=== PATIENT | female | born 1965 | race American Indian/Alaskan Native ===

== ENCOUNTER 2019-10-12 15:41 | Emergency (ER) | payer SELFPAY ==
--- NOTE | 2019-10-12 15:56 | Emergency Department Report ---
ED Female HPI - General Stated complaint: VAGINAL BLEED Time Seen by Provider: 10/12/19 15:44 Source: patient Mode of arrival: Stretcher Limitations: No Limitations - History of Present Illness Initial comments: Mrs. Ugarte is a 54 yo female with hx of bipolar disorder, dysfunctional uterine bleeding, hypertension, dyslipidemia, diabetes mellitus, PCOS who presents from [facility] for evaluation of vaginal bleeding. Patient has had intermittent vaginal bleeding for quite some time. Her vaginal bleeding worsened at the end of September. She was evaluated at [facility]. Due to delusional thought pattern hyperverbal combative behavior, she was transferred to [facility]. 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 She feels as if her agitation combative behavior was triggered by the severe vaginal bleeding. She also admits that she has been under a lot of stress recently. Currently denies SI HI hallucinations. Currently she has dizziness and shortness of breath. MD Complaint: vaginal bleeding -: Gradual, week(s) (Worse over the past 1.5 weeks), year(s) (Several years) Severity: moderate, severe Consistency: constant Improves with: none, menstrual period Are you Now?: No Associated Symptoms: vaginal bleeding, shortness of breath - Related Data Allergies Allergy/AdvReac Type Severity Reaction Status Date / Time clindamycin [From Cleocin] Allergy Rash Verified 10/12/19 15:58 levofloxacin [From Levaquin] Allergy Shortness Verified 10/12/19 15:58 of Breath Penicillins Allergy Rash Verified 10/12/19 15:57 Sulfa (Sulfonamide Allergy Rash Verified 10/12/19 15:58 Antibiotics) ED Review of Systems ROS: Stated complaint: VAGINAL BLEED Other details as noted in HPI Comment: All other systems reviewed and negative Constitutional: denies: fever, malaise Respiratory: shortness of breath. denies: cough Cardiovascular: denies: chest pain Genitourinary: abnormal menses ED Past Medical Hx - Past Medical History Previous Medical History?: Yes Hx Hypertension: Yes Hx Diabetes: Yes Hx Psychiatric Treatment: Yes (Bipolar affective disorder) Additional medical history: Dyslipidemia, PCOS - Surgical History Past Surgical History?: Yes Additional Surgical History: Breast lumpectomy, tonsillectomy, D&C ED Physical Exam - General General appearance: alert, in no apparent distress - Head Head exam: Present: atraumatic, normocephalic - Eye Eye exam: Present: normal appearance - ENT ENT exam: Present: mucous membranes moist - Neck Neck exam: Present: normal inspection, full ROM - Respiratory Respiratory exam: Present: normal lung sounds bilaterally. Absent: respiratory distress, wheezes, rales, rhonchi - Cardiovascular Cardiovascular Exam: Present: regular rate, normal rhythm, normal heart sounds. Absent: systolic murmur, diastolic murmur, rubs, gallop - GI/Abdominal GI/Abdominal exam: Present: soft, normal bowel sounds. Absent: distended, tenderness, guarding, rebound - Extremities Exam Extremities exam: Present: normal inspection - Neurological Exam Neurological exam: Present: alert, oriented X3 - Psychiatric Psychiatric exam: Present: normal affect, normal mood - Skin Skin exam: Present: normal color, rash, other (Erythematous rash under both breasts) ED Course Vital Signs 10/12/19 10/12/19 15:52 15:59 Temperature 97.6 F Pulse Rate 93 H Respiratory 19 20 Rate Blood Pressure 147/69 O2 Sat by Pulse 100 Oximetry ED Medical Decision Making - Lab Data Result diagrams: 10/12/19 15:53 - Radiology Data Radiology results: report reviewed Ultrasound: Mildly thickened endometrial complex maximal diameter 1.6 cm, likely uterine fibroid in the posterior wall 2.8 cm in diameter no free pelvic fluid, bilateral adnexal regions within normal limits - Medical Decision Making This is a 54-year-old female who is currently being evaluated and treated at [facility]. She has had intermittent dysfunctional bleeding uterine for several years worse over the last 10 days. No significant anemia. I spoke with associated colleague of Dr. Alcaraz. She recommended outpatient follow-up. Hormonal therapy is contraindicated in this instance. Patient is discharged home. She was discharged voluntarily from [facility] clinic. She is appropriate for discharge. Critical care attestation.: If time is entered above; I have spent that time in minutes in the direct care of this critically ill patient, excluding procedure time. ED Disposition Clinical Impression: Dysfunctional uterine bleeding, Uterine fibroid Disposition: TO HOME OR SELFCARE Is pt being admited?: No Does the pt Need Aspirin: No Condition: Stable Instructions: Dysfunctional Uterine Bleeding (ED), Uterine Fibroids (ED) Referrals: JOSSIE ALCARAZ MD [Staff Physician] - 2-3 Days
[2019-10-12 15:57] VITALS: BP 147/69
[2019-10-12 16:06] LABS: Basophils # (Auto) 0.1 K/mm3 (0.0-0.1); Basophils % (Auto) 0.5 % (0.0-1.8); Eosinophils # (Auto) 0.1 K/mm3 (0.0-0.4); Eosinophils % (Auto) 0.9 % (0.0-4.3); Hematocrit 35.2 % (30.3-42.9); Hemoglobin 11.3 gm/dl (10.1-14.3); Lymphocytes # (Auto) 2.7 K/mm3 (1.2-5.4); Lymphocytes % (Auto) 26.1 % (13.4-35.0); Mean Corpuscular HGB Conc 32 % (30-34); Mean Corpuscular Volume 84 fl (79-97); Monocytes # (Auto) 0.7 K/mm3 (0.0-0.8); Monocytes % (Auto) 6.7 % (0.0-7.3); Platelet Count 243 K/mm3 (140-440); Red Cell Distribution Width 13.9 % (13.2-15.2)
--- NOTE | 2019-10-12 17:45 | Ultrasound Report ---
EXAMINATION: Pelvic ultrasound, 10/12/2019 CLINICAL INFORMATION: Dysfunctional uterine bleeding. COMPARISON: No relevant prior studies are available for comparison. FINDINGS: The uterus is upper limits of normal in size measuring 9.9 x 4.6 x 6.5 cm. The endometrial complex is thickened to a maximum dimension of 1.6 cm. There is a single hypoechoic oval mass within the licensed pesticide applicator ior wall of the uterus measuring 2.8 x 1.3 cm. Several mildly complicated nabothian cysts are present , the largest of which measures 1.6 cm. The bilateral adnexal regions appear within normal limits. No free pelvic fluid is visualized. IMPRESSION: 1. Mildly thickened endometrial complex measuring a maximum of 1.6 cm. 2. Hypoechoic oval mass in the posterior uterine wall favored to represent a uterine fibroid. Signer Name: Mary Hatch MD Signed: 10/12/2019 5:41 PM Workstation Name: [email or web address]
--- NOTE | 2019-10-12 17:45 | Ultrasound Report ---
EXAMINATION: Pelvic ultrasound, 10/12/2019 CLINICAL INFORMATION: Dysfunctional uterine bleeding. COMPARISON: No relevant prior studies are available for comparison. FINDINGS: The uterus is upper limits of normal in size measuring 9.9 x 4.6 x 6.5 cm. The endometrial complex is thickened to a maximum dimension of 1.6 cm. There is a single hypoechoic oval mass within the light armored reconnaissance officer ior wall of the uterus measuring 2.8 x 1.3 cm. Several mildly complicated nabothian cysts are present , the largest of which measures 1.6 cm. The bilateral adnexal regions appear within normal limits. No free pelvic fluid is visualized. IMPRESSION: 1. Mildly thickened endometrial complex measuring a maximum of 1.6 cm. 2. Hypoechoic oval mass in the posterior uterine wall favored to represent a uterine fibroid. Signer Name: Mary Hatch MD Signed: 10/12/2019 5:41 PM Workstation Name: [id number]
== END 2019-10-12 21:54 | disposition home or self-care (01) ==
LOC: ED 15:41
DX: N93.8 Other specified abnormal uterine and vaginal bleeding (principal); D25.9 Leiomyoma of uterus, unspecified; I10 Essential (primary) hypertension; E11.9 Type 2 diabetes mellitus without complications; F31.9 Bipolar disorder, unspecified; E78.5 Hyperlipidemia, unspecified; Z90.89 Acquired absence of other organs; Z98.890 Other specified postprocedural states; Z88.0 Allergy status to penicillin; Z88.2 Allergy status to sulfonamides; Z88.1 Allergy status to other antibiotic agents
CPT/HCPCS: 36415; 76830; 76856; 85025